=== PATIENT | female | born 1950 | race Caucasian/White ===

== ENCOUNTER 2017-01-15 09:42 | Observation (INO) ==
[2017-01-15] MEDS ORDERED: Ondansetron ODT 4 MG TAB.RAPDIS SL ONE (10:13)
--- NOTE | 2017-01-15 10:17 | Emergency Department Note ---
Disposition Clinical Impression: Fall Qualifiers: Encounter type: initial encounter Qualified Code(s): W19.XXXA - Unspecified fall, initial encounter Back pain Qualifiers: Back pain location: back pain in unspecified location Chronicity: acute Back pain laterality: bilateral Qualified Code(s): M54.9 - Dorsalgia, unspecified Vomiting Qualifiers: Vomiting type: unspecified Vomiting Intractability: non-intractable Nausea presence: with nausea Qualified Code(s): R11.2 - Nausea with vomiting, unspecified Closed L1 vertebral fracture Qualifiers: Encounter type: initial encounter Fracture morphology: unspecified fracture morphology Qualified Code(s): S32.019A - Unspecified fracture of first lumbar vertebra, initial encounter for closed fracture Disposition: Admitted As Inpatient Condition: Fair Instructions: Fall Prevention for Older Adults (ED), Acute Nausea and Vomiting (ED) Reasons to Return/Additional Instructions: Return with worsening symptoms or any other complaints. Please follow up with her primary care doctor within 24-48 hours. Forms: ED Satisfaction Letter Fall HPI - General Chief Complaint: ED Fall Stated Complaint: Fall-back Pain Source: patient, EMS Nursing Notes Reviewed: Yes Vital Signs Reviewed: Yes - History of Present Illness HPI Narrative: 66-year-old female presents to the emergency department with mechanical fall. Patient states that she was outside attempting to pot a plant that had been growing on the inside, when she tripped and fell backwards. Said she landed mostly on her lower back but also seems to have injured her upper back and hit her head. She denies loss of consciousness but said she felt dizzy for a little while and she did have several episodes of emesis. The vomiting has resolved. She does not have any headache. She has some mild neck tenderness. Most of her complaints at this time are related to her neck and back. She was able to ambulate but barely. She is very difficult time taking pain medications and says she is allergic to anything narcotic. Pt Subjective Complaint: fall Onset (ago): Just SLITTING [employer] Fall From: standing Fall Witnessed: no Place Fall Occurred: home Loss of Consciousness: none Prolonged Down Time?: no Symptoms Prior to Fall: none Context: tripped/slipped Location of injury: head, neck, back Severity: mild Quality: sharp Associated symptoms (after fall): Reports: denies - Related Data Home Medications Medication Instructions Recorded Confirmed Acetaminophen [Tylenol] 325 mg PO Q6HR 07/05/15 07/05/15 Cholecalciferol (Vitamin D3) 2,000 unit PO DAILY 07/05/15 07/05/15 [Vitamin D3] Cyanocobalamin (Vitamin B-12) 100 mcg PO DAILY 07/05/15 07/05/15 [Vitamin B-12] Denosumab [Prolia (For Outpatient 60 mg SQ [id number] 07/05/15 07/05/15 Infusion)] Diclofenac Sodium [Voltaren] 1 appl TP QID 07/05/15 07/05/15 FLUoxetine HCl [Prozac] 10 mg PO DAILY 07/05/15 07/05/15 Levothyroxine Sodium [Tirosint] 50 mcg PO AD 07/05/15 07/05/15 Pravastatin Sodium 10 mg PO QPM 07/05/15 07/05/15 Previous Rx's Medication Instructions Recorded Ondansetron ODT [Zofran ODT] 4 mg SL Q8HR PRN #20 tab.rapdis 07/06/15 Cyclobenzaprine [Flexeril] 10 mg PO BID #10 tablet 04/16/16 Allergies Allergy/AdvReac Type Severity Reaction Status Date / Time codeine Allergy Severe Anaphylaxis Verified 01/28/15 10:58 acetaminophen [From Percocet] AdvReac Nausea Verified 04/16/16 00:16 Opioids - Morphine Analogues AdvReac Headache Verified 07/06/15 12:03 Oxycodone [From Percocet] AdvReac Nausea Verified 04/16/16 00:16 Tetracyclines AdvReac Itching Verified 03/04/15 12:00 All systems ED: reviewed and negative except as stated. Constitutional: Reports: as per HPI Eyes: Reports: as per HPI ENT ED: Reports: as per HPI Cardiovascular: Reports: as per HPI Respiratory: Reports: as per HPI Gastrointestinal: Reports: as per HPI Fall PMH - Past Medical History Medical history: Reports: no medical history, arthritis, hyperlipidemia, osteoporosis, thyroid disease, other Surgical history: Reports: other Psychiatric history: Reports: no psych history - Social History Smoking Status: Never smoker Alcohol use: Reports: occasionally Drug use: Reports: none Physical Exam - General Limitations: no limitations General appearance: alert, in distress - Head Head exam: atraumatic - Eye Eye exam: Present: normal appearance - ENT ENT exam: normal exam - Neck Neck exam: Present: normal inspection, tenderness (Mild tenderness without step- offs.) - Chest Chest inspection: Present: normal inspection, tenderness (Post yearly patient has tenderness along the ribs and chest wall at the area of the back) - Respiratory Respiratory exam: Present: normal lung sounds bilaterally - Cardiovascular Cardiovascular exam: Present: regular rate, normal rhythm - Abdominal Exam Abdominal exam: Present: soft, Non-Tender - Expanded Lower Extremity Exam Hip/Pelvis exam: Present: normal inspection. Absent: tenderness, swelling - Back Exam Back exam: Present: normal inspection, tenderness (Patient has tenderness with palpation of the lower thoracic and entire lumbar spinous processes.) - Neurological Exam Neurological exam: Present: alert, oriented X3 - Psychiatric Psychiatric exam: Present: normal affect, normal mood - Skin Skin exam: Present: warm, dry, intact Course Vital Signs Temperature 98.2 F 01/15/17 09:43 Pulse Rate 98 01/15/17 09:43 Respiratory Rate 18 01/15/17 09:43 Blood Pressure 138/90 01/15/17 09:43 O2 Sat by Pulse Oximetry 99 01/15/17 09:43 Temperature 98.2 F 01/15/17 09:43 Pulse Rate 93 01/15/17 10:21 Respiratory Rate 18 01/15/17 10:21 Blood Pressure 140/94 01/15/17 10:21 O2 Sat by Pulse Oximetry 100 01/15/17 10:21 Oxygen Delivery Oxygen Delivery Room Air Fall - [facility] Narrative Medical decision making narrative: Patient is extremely frail appearing which prompted a relatively extensive radiographic evaluation for injury. She has tenderness to palpation but no obvious deformities on examination. CT scans of the head and neck were negative. Pelvic x-ray and chest x-ray also did not show acute abnormalities. However CT scans of the lumbar spine revealed compression fracture and endplate fracture of T12 and L1. I discussed the case with Dr. Choudhary who said that they can see her has an inpatient there is nothing surgically to do. I discussed the possibility of going home versus staying in the hospital with the patient. The patient who takes care of her is in a wheelchair said she really felt that she would rather stay in the hospital for the day skittle little bit of rest and recover from her acute back fracture. She was able to ambulate although with some discomfort while in the emergency department. We treated her pain with ibuprofen as she requested because the patient left take narcotic pain medication. We also treat her nausea successfully with Zofran. I discussed case with the hospitalist agree to accept the patient for the evening for further evaluation treatment. At her request we also ordered several lab testing so that they could effectively manage the patient while in the hospital. - Lab Data Lab results reviewed: Yes I reviewed the patient's lab results.
[2017-01-15] MEDS ORDERED: Ondansetron ODT 4 MG TAB.RAPDIS SL PRN (13:48)
[2017-01-15] MEDS ORDERED: Naloxone 0.4 MG/ML INJ IVP PRN (13:48)
[2017-01-15] MEDS ORDERED: dimenhyDRINATE 50 MG TABLET PO PRN (13:52)
--- NOTE | 2017-01-15 14:48 | Internal Med History&Physical ---
<Rachel Lua M - Last Filed: 01/15/17 14:44> Date of Encounter: 01/15/17 Time of Encounter: 14:44 Assessment and Plan (1) Closed L1 vertebral fracture Current visit: Yes Status: Acute Patient suffered mechanical fall today and reports low back pain. CT shows Compression fracture and endplate fracture of T12 and L1. Dr. Issa of spine surgery consulted. This is no-surgical injury, but he will see patient. Tyelonol and NSAIDs for pain. PT/OT consults. Qualifiers: Encounter type: initial encounter Fracture morphology: unspecified fracture morphology Qualified Code(s): S32.019A - Unspecified fracture of first lumbar vertebra, initial encounter for closed fracture (2) Hypothyroid Current visit: Yes Status: Acute continue home dose of Synthroid Qualifiers: Hypothyroidism type: unspecified Qualified Code(s): E03.9 - Hypothyroidism , unspecified (3) Fall Current visit: Yes Status: Acute Patient had a mechanical fall at home. She reports hitting her head with dizziness and vomiting afterwards, as well as low back pain. Dizziness and vomiting now resolved. CT head negative for acute abnormality. CT of lumbar spine showed compression fracture and endplate fracture of T12 and L1. Consult to PT/OT Consult to [facility] for discharge planning. Qualifiers: Encounter type: initial encounter Qualified Code(s): W19.XXXA - Unspecified fall, initial encounter (4) Back pain Current visit: Yes Status: Acute Patient with low back pain after fall. CT shows compression fracture of T12 and L1. Not surgical. Patient does not like to take narcotics. Will treat with tylenol and NSAIDs. PT and OT consults. Qualifiers: Back pain location: back pain in unspecified location Chronicity: acute Back pain laterality: bilateral Qualified Code(s): M54.9 - Dorsalgia, unspecified (5) DVT prophylaxis Current visit: Yes Status: Acute sequential compression devices. Internal Medicine - H&P: HPI Chief complaint: fall Admitted From: Emergency Dept Plans for Post Hospital Care: Home History of present illness: Ms. Beltran is a 66 year old female with arthritis, osteoporosis, hypothyroid presents to the emergency department today with complaints of fall and back pain. She reports she was working in her yard when she tripped and fell backwards landing on her low back and hitting her head, after the fall she was dizzy for sure. And vomited several times. Patient denies headache, current dizziness or vomiting, she denies any chest pain, palpitations, shortness of breath. She is reporting difficulty with walking due to the low back pain. Evaluation in the emergency department included CT of the head and cervical neck which showed no acute intracranial abnormalities and no acute fractures. CT of the lumbar spine did show compression fracture and and plate fracture of T12 and L1. Dr. Choudhary was consulted and sedimentation rate this is not surgically but he would be happy to see the patient. On exam, patient is alert and oriented, in no acute distress. Appears chronically frail. Her heart has regular rate and rhythm, lungs are clear bilaterally to auscultation. No peripheral edema. She does have tenderness to palpation of the spine or low back. Past Med Surg Social Fam HX - Past Medical History Medical history: arthritis, hyperlipidemia, osteoporosis, thyroid disease, other Psychiatric history: no psych history - Past Surgical History Surgical History: other - Social History Smoking Status: Never smoker Smokeless Tobacco Status: No Alcohol use: none Drug use: none - Family History Mother Living Status: Hx Family Cancer: Yes Father Living Status: Cause of : Cancer Hx Family Cancer: Yes Internal Medicine - H&P: Meds Acetaminophen [Tylenol] 650 mg PO Q6HR PRN 07/05/15 [History] Cholecalciferol (Vitamin D3) [Vitamin D3] 2,000 unit PO DAILY 07/05/15 [History] Cyanocobalamin (Vitamin B-12) [Vitamin B-12] 100 mcg PO DAILY 07/05/15 [History] Denosumab [Prolia (For Outpatient Infusion)] 60 mg SQ [id number] 07/05/15 [History ] Diclofenac Sodium [Voltaren] 1 appl TP QID 07/05/15 [History] FLUoxetine HCl [Prozac] 10 mg PO DAILY 07/05/15 [History] Levothyroxine Sodium [Tirosint] 50 mcg PO AD 07/05/15 [History] Pravastatin Sodium 10 mg PO QPM 07/05/15 [History] Ondansetron ODT [Zofran ODT] 4 mg SL Q8HR PRN #20 tab.rapdis 07/06/15 [Rx] Cyclobenzaprine [Flexeril] 10 mg PO BID #10 tablet 04/16/16 [Rx] Aspirin [Lo-Dose Aspirin EC] 81 mg PO DAILY 01/15/17 [History] Multivitamin [Multivitamins] 1 cap PO DAILY 01/15/17 [History] dimenhyDRINATE [Dramamine] 50 mg PO BID PRN 01/15/17 [History] 3 Allergy/AdvReac Type Severity Reaction Status Date / Time codeine Allergy Severe Anaphylaxis Verified 01/28/15 10:58 acetaminophen [From Percocet] AdvReac Nausea Verified 04/16/16 00:16 Opioids - Morphine Analogues AdvReac Headache Verified 07/06/15 12:03 Oxycodone [From Percocet] AdvReac Nausea Verified 04/16/16 00:16 Tetracyclines AdvReac Itching Verified 03/04/15 12:00 All Systems PM: A 10-system review of systems was performed and is negative for pertinent findings except as documented above in the HPI. - Constitutional Constitutional: falls, no chills, no fever(s), no night sweats - EENT Eyes: no change in vision, no discharge, no pain, no photophobia Ears: no ear discharge, no ear pain, no tinnitus Nose, mouth and throat: no dysphagia, no nasal discharge, no neck pain, no sore throat - Cardiovascular Cardiovascular ROS IM: no chest pain, no diaphoresis, no dyspnea, no lightheadedness, no palpitations, no syncope - Respiratory Respiratory: no cough, no dyspnea, no wheezing, no excessive phlegm production - Gastrointestinal Gastrointestinal: no abdominal pain, no diarrhea, no hematemesis, no hematochezia, no melena, no nausea, no vomiting - Genitourinary Genitourinary: no change in urinary stream, no dysuria, no flank pain, no hematuria - Musculoskeletal Musculoskeletal ROS IM: back pain, deformity (scoliosis and kyphosis), no numbness, no tingling - Integumentary Integumentary IM: no rash, no unusual bruising - Neurological Neurological ROS: no confusion, no convulsions, no focal weakness, no numbness, no tingling, no tremor(s) - Hematologic/Lymphatic Hematologic/Lymphatic: no easy bruising - Constitutional Vitals: Temp Pulse Resp BP Pulse Ox 98.7 F 95 16 147/81 98 01/15/17 13:23 01/15/17 13:23 01/15/17 13:23 01/15/17 13:23 01/15/17 13:51 General appearance: Present: A&O X 3, pleasant, no acute distress - Head Head exam: Present: atraumatic, normocephalic - Eye Eye exam: Present: PERRL, conjuntiva pink, sclera anicteric Pupils: Present: PERRL - Neck Neck exam general surgery: Present: supple, trachea midline. Absent: lymphadenopathy - Respiratory Respiratory exam: Present: CTAB. Absent: accessory muscle use, rales, rhonchi, wheezes - Cardiovascular Cardiovascular exam: Present: RRR, +S1, +S2. Absent: diastolic murmur, gallop, rubs, systolic murmur - GI/Abdominal GI/Abdominal exam: Present: normal bowel sounds, soft, no peritoneal signs. Absent: distended, tenderness - Extremities Exam Extremities exam: Present: warm, radial pulses palpable and symmetrical. Absent : calf tenderness, cyanotic, pedal edema - Back Exam Back exam: Present: paraspinal tenderness, vertebral tenderness Additional comments: scoliosis and kyphosis - Neurological Exam Neurological exam: Present: CN II-XII intact, oriented X3, no focal deficits. Absent: facial droop, speech deficit - Skin Skin exam: Present: dry, intact Internal Med - H&P Results - Diagnostic Studies Other Images Additional comments: Cervical Spine CT 01/15/17 10:11 IMPRESSION: 1. No acute calvarial abnormality or significant scalp contusion. 2. No acute intracranial abnormality. 3. Significant decreased bone mineral density with pronounced kyphosis. No acute fracture. 4. Diffuse degenerative changes resulting in canal and foraminal stenosis with probable degenerative 4 mm anterolisthesis of C4 with respect to 5 and C5 with respect 6. D/ / 01/15/2017 11:37:39 Darrion Weston MD / [email or web address] Interpreting Provider: Darrion Weston MD Head CT 01/15/17 10:11 IMPRESSION: 1. No acute calvarial abnormality or significant scalp contusion. 2. No acute intracranial abnormality. 3. Significant decreased bone mineral density with pronounced kyphosis. No acute fracture. 4. Diffuse degenerative changes resulting in canal and foraminal stenosis with probable degenerative 4 mm anterolisthesis of C4 with respect to 5 and C5 with respect 6. D/ / 01/15/2017 11:37:39 Darrion Weston MD / zakiya Interpreting Provider: Darrion Weston MD Lumbar Spine CT 01/15/17 10:11 IMPRESSION: Acute superior endplate fracture of L1 with mild height loss and minimal dorsal osseous retropulsion. D/ / Josh Castillo MD / Josh Castillo MD Interpreting Provider: Josh Castillo MD Thoracic Spine CT 01/15/17 10:11 IMPRESSION: Likely transitional vertebral anatomy with partially sacralized L5. If there is surgery planned, recommend counting from the cervical spine. Acute compression fracture at the superior endplate of T12 with minimal retroversion of posterior cortex without contributing to spinal canal stenosis. Chronic appearing mild compression deformities of T1 and T3. Diffuse osteopenia. S-shaped scoliosis of the thoracic spine. Multilevel degenerative disc disease. D/ / Dillon Rios MD / Dillon Rios MD Interpreting Provider: Dillon Rios MD Pelvis X-Ray 01/15/17 10:13 IMPRESSION: 1. Decreased bone mineral density with scoliosis. No acute thoracic traumatic abnormality. 2. 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 No acute fracture. D/ / 01/15/2017 11:02:43 Darrion Weston MD / [email or web address] Interpreting Provider: Darrion Weston MD Chest X-Ray 01/15/17 10:19 IMPRESSION: 1. Decreased bone mineral density with scoliosis. No acute thoracic traumatic abnormality. 2. 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 No acute fracture. D/ / 01/15/2017 11:02:43 Darrion Weston MD / [email or web address] Interpreting Provider: Darrion Weston MD <Cyndie Adams - Last Filed: 01/16/17 07:42> Date of Encounter: 01/15/17 Time of Encounter: 16:05 Internal Medicine - H&P: HPI History of present illness: Ms. Beltran is a 66 year old female All Systems PM: A 10-system review of systems was performed and is negative for pertinent findings except as documented above in the HPI. - Constitutional Vitals: Temp Pulse Resp BP Pulse Ox 98.8 F 96 16 97/64 94 01/16/17 06:26 01/16/17 06:26 01/16/17 06:26 01/16/17 06:26 01/16/17 06:26 Internal Med - H&P Results - Labs CBC & Chem 7: 01/16/17 04:34 01/16/17 04:34 Labs: Short CBC 01/15/17 01/16/17 Range/Units 14:16 04:34 WBC 11.2 H 7.0 (4.3-11.1) K/mcL Hgb 12.0 10.9 L (11.5-15.4) g/dL Hct 37.3 33.2 L (35.3-44.9) % Plt Count 226 165 (140-400) K/mcL Neutrophils # 9.7 H 5.3 (1.6-8.9) K/mcL BMP 01/15/17 01/16/17 14:16 04:34 Sodium 139 143 Potassium 4.4 4.2 Chloride 103 109 Carbon Dioxide 24 25 BUN 19 19 Creatinine 1.04 0.88 Glucose 143 H 97 Calcium 9.8 9.6 Urine 01/15/17 Range/Units 17:45 Urine Color Yellow (Yellow) Urine Clarity Clear (Clear) Urine pH 7.0 (5.0-8.0) pH Units Ur Specific [place] 1.008 L (1.010-1.025) Urine Protein Negative (Neg-Trace) mg/dL Urine Glucose (UA) Normal (Normal) mg/dL - Attending Attestation Pt independently seen and examined. Admitted for compression fracture s/p fall. Case discussed with ORACIO Lua, I agree with her documented findings, assessment, and plan.
[2017-01-15 15:15] LABS: Basophils % 0.2 %; Eosinophils % 0.1 %; Hematocrit 37.3 % (35.3-44.9); Immature Granulocytes % 0.6 % (0-4); Immature Platelets 3.2 % (1.1-6.1); Lymphocytes # 0.8 K/mcL (0.6-4.6); Lymphocytes % 7.3 %; Mean Corpuscular HGB Conc 32.2 g/dL (31.6-35.5); Mean Corpuscular Hemoglobin 29.6 pg (28.0-33.3); Mean Corpuscular Volume 92.1 fL (83.0-100.0); Mean Platelet Volume 10.6 fL (9.4-12.4); Monocytes # 0.6 K/mcL (0.0-1.3); Monocytes % 5.5 %; Neutrophils # 9.7 K/mcL (1.6-8.9); Platelet Count 226 K/mcL (140-400); Red Blood Count 4.05 M/mcL (3.82-4.97); Red Cell Distribution Width 13.4 % (11.5-14.5); Segmented Neutrophils % 86.3 %
[2017-01-15 15:26] LABS: Magnesium 1.9 mg/dL (1.6-2.6); Phosphorous 2.9 mg/dL (2.3-4.7)
[2017-01-15 15:27] LABS: BUN/Creatinine Ratio 18 (6-26); Blood Urea Nitrogen 19 mg/dL (7-20); Calcium 9.8 mg/dL (8.6-10.8); Carbon Dioxide 24 mEq/L (19-29); Chloride 103 mEq/L (98-109); Glucose 143 mg/dL (70-99); Osmolality,Calculated 293 (280-300); Potassium 4.4 mEq/L (3.5-4.5); Sodium 139 mEq/L (136-145); eGFR For African Americans > 60 (> 60); eGFR For Non-African Americans 53 (> 60)
[2017-01-15] MEDS: Acetaminophen 325 MG TABLET PO PRN (15:42)
[2017-01-15] MEDS: Ketorolac 15 MG/ML VIAL IVP PRN ×2 (17:49→23:43)
[2017-01-15 18:04] LABS: Bilirubin,Urine Negative (Negative); Blood,Urine Small (Negative); Clarity,Urine Clear (Clear); Color,Urine Yellow (Yellow); Glucose,Urine (UA) Normal (Normal); Ketones,Urine Negative (Negative); Leukocyte Esterase,Urine Negative (Negative); Nitrite,Urine Negative (Negative); Protein,Urine Negative (Neg-Trace); Specific Gravity,Urine 1.008 (1.010-1.025); Urobilinogen,Urine Normal (Normal)
[2017-01-15 18:12] LABS: RBC,Urine 0-3 per hpf (0-3); Squamous Epithelial Cell,Urine Few per lpf (None-Few); WBC,Urine 0-3 per hpf (0-3)
[2017-01-15 18:13] LABS: Bacteria,Urine Few per hpf (None-Few)
[2017-01-16 04:53] LABS: Basophils % 0.3 %; Eosinophils # 0.1 K/mcL (0.0-0.6); Eosinophils % 0.7 %; Hematocrit 33.2 % (35.3-44.9); Hemoglobin 10.9 g/dL (11.5-15.4); Immature Granulocytes % 0.3 % (0-4); Lymphocytes % 13.9 %; Mean Corpuscular HGB Conc 32.8 g/dL (31.6-35.5); Mean Corpuscular Hemoglobin 30.1 pg (28.0-33.3); Mean Corpuscular Volume 91.7 fL (83.0-100.0); Mean Platelet Volume 10.2 fL (9.4-12.4); Monocytes # 0.6 K/mcL (0.0-1.3); Monocytes % 8.9 %; Neutrophils # 5.3 K/mcL (1.6-8.9); Platelet Count 165 K/mcL (140-400); Red Blood Count 3.62 M/mcL (3.82-4.97); Red Cell Distribution Width 13.6 % (11.5-14.5); Segmented Neutrophils % 75.9 %
[2017-01-16 05:04] LABS: BUN/Creatinine Ratio 22 (6-26); Blood Urea Nitrogen 19 mg/dL (7-20); Calcium 9.6 mg/dL (8.6-10.8); Carbon Dioxide 25 mEq/L (19-29); Chloride 109 mEq/L (98-109); Glucose 97 mg/dL (70-99); Osmolality,Calculated 298 (280-300); Potassium 4.2 mEq/L (3.5-4.5); Sodium 143 mEq/L (136-145); eGFR For African Americans > 60 (> 60); eGFR For Non-African Americans > 60 (> 60)
[2017-01-16] MEDS: Ketorolac 15 MG/ML VIAL IVP PRN ×2 (05:44→13:04)
[2017-01-16] MEDS ORDERED: Cyanocobalamin (B-12) 1,000 MCG TABLET PO SCH (09:00)
[2017-01-16] MEDS ORDERED: Aspirin Enteric Coated 81 MG Tablet PO SCH (09:00)
[2017-01-16] MEDS ORDERED: Multivit/Ca/Min/Fe/FA 1 TAB TABLET PO SCH (09:00)
[2017-01-16] MEDS ORDERED: Cholecalciferol (D-3) 1,000 UNIT TABLET PO SCH (09:00)
[2017-01-16] MEDS ORDERED: FLUoxetine HCl 10 MG CAPSULE PO SCH (09:00)
[2017-01-16] MEDS: Acetaminophen 325 MG TABLET PO PRN (10:26)
--- NOTE | 2017-01-16 11:50 | Discharge Summary ---
Date of Encounter: 01/16/17 Time of Encounter: 09:20 - Discharge Diagnosis (1) Closed L1 vertebral fracture Priority: Primary Status: Acute Qualifiers: Encounter type: initial encounter Fracture morphology: other fracture Qualified Code(s): S32.018A - Other fracture of first lumbar vertebra, initial encounter for closed fracture (2) Back pain Priority: Secondary Status: Acute Qualifiers: Back pain location: low back pain Chronicity: acute Back pain laterality : bilateral Sciatica presence: without sciatica Qualified Code(s): M54.5 - Low back pain (3) DVT prophylaxis Priority: Secondary Status: Acute (4) Fall Priority: Secondary Status: Acute Qualifiers: Encounter type: initial encounter Qualified Code(s): W19.XXXA - Unspecified fall, initial encounter (5) Hypothyroid Priority: Secondary Status: Acute Qualifiers: Hypothyroidism type: unspecified Qualified Code(s): E03.9 - Hypothyroidism , unspecified - Discharge Medications Prescriptions: Ibuprofen [Motrin] 800 mg PO Q8HR #30 tablet Famotidine [Pepcid] 20 mg PO BID #30 tablet Home Medications: Acetaminophen [Tylenol] 650 mg PO Q6HR PRN 07/05/15 [History] Cholecalciferol (Vitamin D3) [Vitamin D3] 2,000 unit PO DAILY 07/05/15 [History] Cyanocobalamin (Vitamin B-12) [Vitamin B-12] 100 mcg PO DAILY 07/05/15 [History] Denosumab [Prolia (For Outpatient Infusion)] 60 mg SQ [id number] 07/05/15 [History ] Diclofenac Sodium [Voltaren] 1 appl TP QID 07/05/15 [History] FLUoxetine HCl [Prozac] 10 mg PO DAILY 07/05/15 [History] Levothyroxine Sodium [Tirosint] 50 mcg PO AD 07/05/15 [History] Pravastatin Sodium 10 mg PO QPM 07/05/15 [History] Ondansetron ODT [Zofran ODT] 4 mg SL Q8HR PRN #20 tab.rapdis 07/06/15 [Rx] Cyclobenzaprine [Flexeril] 10 mg PO BID #10 tablet 04/16/16 [Rx] Aspirin [Lo-Dose Aspirin EC] 81 mg PO DAILY 01/15/17 [History] Multivitamin [Multivitamins] 1 cap PO DAILY 01/15/17 [History] dimenhyDRINATE [Dramamine] 50 mg PO BID PRN 01/15/17 [History] Famotidine [Pepcid] 20 mg PO BID #30 tablet 01/16/17 [Rx] Ibuprofen [Motrin] 800 mg PO Q8HR #30 tablet 01/16/17 [Rx] Allergies/Adverse Reactions: 3 Allergy/AdvReac Type Severity Reaction Status Date / Time codeine Allergy Severe Anaphylaxis Verified 01/28/15 10:58 acetaminophen [From Percocet] AdvReac Nausea Verified 04/16/16 00:16 Opioids - Morphine Analogues AdvReac Headache Verified 07/06/15 12:03 Oxycodone [From Percocet] AdvReac Nausea Verified 04/16/16 00:16 Tetracyclines AdvReac Itching Verified 03/04/15 12:00 Date of admission: 01/15/17 12:23 Primary care physician: Shemar Mazariegos MD Consults: 01/15/17 13:50 Consult to Tufting Supervisor [CONS] Routine Reason for SW Consult: Patient cares for disable at home and now has spinal compression fracture, will need additional assistance, discharge planning. Consult to Tufting Supervisor [CONS] Routine Reason for SW Consult: d/c planning 01/15/17 13:51 Consult to Occupational Therapy [CONS] Routine Comment: Evaluate, develop and implement POC Reason for Consult: compression fracture Consult to Physical Therapy [CONS] Routine Comment: Evaluate, develop and implement POC Reason for Consult: compression fracture Discharging clinician: Eliu Garvin Anticipated date of discharge: 01/16/17 - Patient Status Disposition: Home Health Service Condition: Fair Functional capacity at discharge: uses cane/walker Overall status at discharge: patient is progressing back to baseline - Discharge Instructions Instructions: Famotidine (By mouth), Ibuprofen (By mouth), Vertebral Compression Fracture (DC) Follow Up With: Mohan Choudhary Jr, MD [Partnered Physician] - 01/26/17 8:30 am (in 1-2 weeks) Shemar Mazariegos MD [Primary Care Provider] - 01/25/17 2:15 pm (in 1-2 weeks) - Diet and Activity Activity: as per physical therapy, increase activity as tolerated Diet: low fat, low cholesterol, low salt diet Hospital course: Ms. Beltran is a 66 year old female patient with history of arthritis, osteoporosis and hypothyroidism was hospitalized if here after a fall backwards which resulted in compression fracture endplate fracture of T12 and L1. CT of the head showed no acute bleed. Patient was evaluated by spine surgeon and recommended outpatient follow-up. Patient was evaluated by physical therapy and recommended home health. Her pain is better controlled today. She will be discharged home today with home health and physical therapy. - Time Spent with Patient Total time spent providing and/or coordinating discharge services: Less than 30 minutes (25 min) - Constitutional Vitals: Temp Pulse Resp BP Pulse Ox 97.7 F 80 16 159/83 99 01/16/17 11:18 01/16/17 11:18 01/16/17 11:18 01/16/17 11:18 01/16/17 11:18 General appearance: Present: A&O X 3, pleasant, no acute distress - Neck Neck exam general surgery: Present: supple, trachea midline. Absent: lymphadenopathy - Respiratory Respiratory exam: Present: CTAB. Absent: accessory muscle use, rales, rhonchi, wheezes - Cardiovascular Cardiovascular exam: Present: RRR, +S1, +S2. Absent: diastolic murmur, gallop, rubs, systolic murmur - Extremities Exam Extremities exam: Present: warm, radial pulses palpable and symmetrical. Absent : calf tenderness, cyanotic, pedal edema - VTE Documentation of Mechanical Device: Intermittent pneumatic compression device
--- NOTE | 2017-01-16 11:56 | Physician Discharge Referral ---
Home Health/Hosp Referral Info Transfer to: Home Health Provider in Charge Post Discharge: PCP - Diagnosis (1) Closed L1 vertebral fracture Priority: Primary Status: Acute (2) Back pain Priority: Secondary Status: Acute (3) DVT prophylaxis Priority: Secondary Status: Acute (4) Fall Priority: Secondary Status: Acute (5) Hypothyroid Priority: Secondary Status: Acute - Respiratory Orders Smoking Cessation: Smoking cessation has been advised. For more information, call the [place] Tobacco Quit Line at 9-395-NGHX-NOW. - Diet/Nutrition Diet/Nutrition Orders: Cardiac - Activity Activity Orders: Walker - Services Needed Following services are medically necessary services: Nursing, Home Health Aide, Physical Therapy, Occupational Therapy - Transfer Medications Prescriptions: Ibuprofen [Motrin] 800 mg PO Q8HR #30 tablet Famotidine [Pepcid] 20 mg PO BID #30 tablet Home Medications: Acetaminophen [Tylenol] 650 mg PO Q6HR PRN 07/05/15 [History] Cholecalciferol (Vitamin D3) [Vitamin D3] 2,000 unit PO DAILY 07/05/15 [History] Cyanocobalamin (Vitamin B-12) [Vitamin B-12] 100 mcg PO DAILY 07/05/15 [History] Denosumab [Prolia (For Outpatient Infusion)] 60 mg SQ [id number] 07/05/15 [History ] Diclofenac Sodium [Voltaren] 1 appl TP QID 07/05/15 [History] FLUoxetine HCl [Prozac] 10 mg PO DAILY 07/05/15 [History] Levothyroxine Sodium [Tirosint] 50 mcg PO AD 07/05/15 [History] Pravastatin Sodium 10 mg PO QPM 07/05/15 [History] Ondansetron ODT [Zofran ODT] 4 mg SL Q8HR PRN #20 tab.rapdis 07/06/15 [Rx] Cyclobenzaprine [Flexeril] 10 mg PO BID #10 tablet 04/16/16 [Rx] Aspirin [Lo-Dose Aspirin EC] 81 mg PO DAILY 01/15/17 [History] Multivitamin [Multivitamins] 1 cap PO DAILY 01/15/17 [History] dimenhyDRINATE [Dramamine] 50 mg PO BID PRN 01/15/17 [History] Famotidine [Pepcid] 20 mg PO BID #30 tablet 01/16/17 [Rx] Ibuprofen [Motrin] 800 mg PO Q8HR #30 tablet 01/16/17 [Rx] Allergies/Adverse Reactions: 3 Allergy/AdvReac Type Severity Reaction Status Date / Time codeine Allergy Severe Anaphylaxis Verified 01/28/15 10:58 acetaminophen [From Percocet] AdvReac Nausea Verified 04/16/16 00:16 Opioids - Morphine Analogues AdvReac Headache Verified 07/06/15 12:03 Oxycodone [From Percocet] AdvReac Nausea Verified 04/16/16 00:16 Tetracyclines AdvReac Itching Verified 03/04/15 12:00 Certification: Further, I certify that my clinical findings support that this patient is homebound (i.e. absences from home require considerable and taxing effort and are for medical reasons or latter day services or infrequently or short duration when for other reasons) because: Homebound Reason: Patient requires assistance of a person or device to safely leave home Attestation: My signature below is to certify that this patient is under my care and that I, or nurse practitioner, or a physician's assistant golf course superintendent working with me, has a face-to -face encounter with this patient.
--- NOTE | 2017-01-16 17:32 | Pain Management Consultation ---
Date of Encounter: 01/16/17 Time of Encounter: 17:30 Assessment and Plan (1) Compression fracture Status: Acute The assessment and plan as outlined above was discussed with the patient and/or family members who expressed understanding and agreement. All questions were answered. History of Present Illness Chief complaint: back pain HPI: This patient was discharged before being seen. Past Med Surg Social Fam HX - Past Medical History Medical history: arthritis, hyperlipidemia, osteoporosis, thyroid disease, other Psychiatric history: no psych history - Past Surgical History Surgical History: other - Social History Smoking Status: Never smoker Smokeless Tobacco Status: No Alcohol use: none Drug use: none - Family History Mother Living Status: Hx Family Cancer: Yes Father Living Status: Cause of : Cancer Hx Family Cancer: Yes Medications and Allergies Acetaminophen [Tylenol] 650 mg PO Q6HR PRN 07/05/15 [History] Cholecalciferol (Vitamin D3) [Vitamin D3] 2,000 unit PO DAILY 07/05/15 [History] Cyanocobalamin (Vitamin B-12) [Vitamin B-12] 100 mcg PO DAILY 07/05/15 [History] Denosumab [Prolia (For Outpatient Infusion)] 60 mg SQ [id number] 07/05/15 [History ] Diclofenac Sodium [Voltaren] 1 appl TP QID 07/05/15 [History] FLUoxetine HCl [Prozac] 10 mg PO DAILY 07/05/15 [History] Levothyroxine Sodium [Tirosint] 50 mcg PO AD 07/05/15 [History] Pravastatin Sodium 10 mg PO QPM 07/05/15 [History] Ondansetron ODT [Zofran ODT] 4 mg SL Q8HR PRN #20 tab.rapdis 07/06/15 [Rx] Cyclobenzaprine [Flexeril] 10 mg PO BID #10 tablet 04/16/16 [Rx] Aspirin [Lo-Dose Aspirin EC] 81 mg PO DAILY 01/15/17 [History] Multivitamin [Multivitamins] 1 cap PO DAILY 01/15/17 [History] dimenhyDRINATE [Dramamine] 50 mg PO BID PRN 01/15/17 [History] Famotidine [Pepcid] 20 mg PO BID #30 tablet 01/16/17 [Rx] Ibuprofen [Motrin] 800 mg PO Q8HR #30 tablet 01/16/17 [Rx] 3 Allergy/AdvReac Type Severity Reaction Status Date / Time codeine Allergy Severe Anaphylaxis Verified 01/28/15 10:58 acetaminophen [From Percocet] AdvReac Nausea Verified 04/16/16 00:16 Opioids - Morphine Analogues AdvReac Headache Verified 07/06/15 12:03 Oxycodone [From Percocet] AdvReac Nausea Verified 04/16/16 00:16 Tetracyclines AdvReac Itching Verified 03/04/15 12:00 Physical Exam Initial Vital Signs Temp Pulse Resp BP Pulse Ox 98.2 F 98 18 138/90 99 01/15/17 09:43 01/15/17 09:43 01/15/17 09:43 01/15/17 09:43 01/15/17 09:43 Results - Labs 01/16/17 04:34 01/16/17 04:34 Abnormal lab results RBC 3.62 M/mcL (3.82-4.97) L 01/16/17 04:34 Hgb 10.9 g/dL (11.5-15.4) L 01/16/17 04:34 Hct 33.2 % (35.3-44.9) L 01/16/17 04:34 Ur Specific [place] 1.008 (1.010-1.025) L 01/15/17 17:45 Urine Blood Small (Negative) H 01/15/17 17:45 Diabetes panel 01/16/17 Range/Units 04:34 Sodium 143 (136-145) mEq/L Potassium 4.2 (3.5-4.5) mEq/L Chloride 109 (98-109) mEq/L Carbon Dioxide 25 (19-29) mEq/L BUN 19 (7-20) mg/dL Creatinine 0.88 (0.57-1.11) mg/dL Glucose 97 (70-99) mg/dL Calcium 9.6 (8.6-10.8) mg/dL Calcium panel 01/16/17 Range/Units 04:34 Calcium 9.6 (8.6-10.8) mg/dL Pituitary panel 01/16/17 Range/Units 04:34 Sodium 143 (136-145) mEq/L Potassium 4.2 (3.5-4.5) mEq/L Chloride 109 (98-109) mEq/L Carbon Dioxide 25 (19-29) mEq/L BUN 19 (7-20) mg/dL Creatinine 0.88 (0.57-1.11) mg/dL Glucose 97 (70-99) mg/dL Calcium 9.6 (8.6-10.8) mg/dL Adrenal panel 01/16/17 Range/Units 04:34 Sodium 143 (136-145) mEq/L Potassium 4.2 (3.5-4.5) mEq/L Chloride 109 (98-109) mEq/L Carbon Dioxide 25 (19-29) mEq/L BUN 19 (7-20) mg/dL Creatinine 0.88 (0.57-1.11) mg/dL Glucose 97 (70-99) mg/dL Calcium 9.6 (8.6-10.8) mg/dL All other labs normal. - VTE Documentation of Mechanical Device: Intermittent pneumatic compression device Consult Discharge Plan - Plan Instructions: Famotidine (By mouth), Ibuprofen (By mouth), Vertebral Compression Fracture (DC) Referrals: Mohan Choudhary Jr, MD [Partnered Physician] - 01/26/17 8:30 am (in 1-2 weeks) Shemar Mazariegos MD [Primary Care Provider] - 01/25/17 2:15 pm (in 1-2 weeks) Prescriptions: Famotidine [Pepcid] 20 mg PO BID #30 tablet Ibuprofen [Motrin] 800 mg PO Q8HR #30 tablet
[2017-01-24 06:55] VITALS: BP 127/77
== END 2017-01-16 16:37 | disposition home health service (06) ==
LOC: 3NENU 09:42 → EMEROO 09:42 → 3NENU 13:10
PROVIDERS: ADMIT Internal Medicine; ATTEND Internal Medicine

== ENCOUNTER 2020-10-14 13:22 | Observation (INO) ==
[2020-10-14] MEDS ORDERED: 0.9 % Sodium Chloride 1,000 ML IVC ONE (13:35)
[2020-10-14] MEDS ORDERED: Ondansetron 4 MG/2 ML VIAL IVP ONE (13:35)
[2020-10-14] MEDS ORDERED: Isovue-370 500 ML BOTTLE IVP ONE (14:08)
[2020-10-14] MEDS ORDERED: *HR* Promethazine 25 MG/ML VIAL IM ONE (14:41)
[2020-10-14] MEDS ORDERED: Prochlorperazine 10 MG/2 ML VIAL IVP ONE (14:43)
[2020-10-14 15:02] LABS: Basophils # 0.1 K/mcL (0.0-0.2); Basophils % 0.3 %; Eosinophils # 0.1 K/mcL (0.0-0.6); Eosinophils % 0.5 %; Hematocrit 33.7 % (35.3-44.9); Hemoglobin 10.9 g/dL (11.5-15.4); Immature Granulocytes % 0.5 % (0-4); Lymphocytes # 4.3 K/mcL (0.6-4.6); Lymphocytes % 25.8 %; Mean Corpuscular HGB Conc 32.3 g/dL (31.6-35.5); Mean Corpuscular Hemoglobin 30.7 pg (28.0-33.3); Mean Corpuscular Volume 94.9 fL (83.0-100.0); Mean Platelet Volume 10.5 fL (9.4-12.4); Monocytes # 1.3 K/mcL (0.0-1.3); Monocytes % 7.5 %; Neutrophils # 10.9 K/mcL (1.6-8.9); Platelet Count 251 K/mcL (140-400); Red Blood Count 3.55 M/mcL (3.82-4.97); Red Cell Distribution Width 13.3 % (11.5-14.5); Segmented Neutrophils % 65.4 %; White Blood Count 16.7 K/mcL (4.3-11.1)
[2020-10-14 15:03] LABS: Platelet Estimate Normal (Normal); Reactive Lymphocytes Present (Not Present)
[2020-10-14 15:16] LABS: Troponin I < 0.03 ng/mL (< 0.04)
[2020-10-14 15:17] LABS: Bilirubin,Urine Negative (Negative); Blood,Urine Negative (Negative); Clarity,Urine Clear (Clear); Color,Urine Yellow (Yellow); Glucose,Urine (UA) Normal (Normal); Ketones,Urine 40 mg/dL (Negative); Leukocyte Esterase,Urine Negative (Negative); Mucus,Urine Few per lpf (None-Few); Nitrite,Urine Negative (Negative); PH,Urine 7.5 pH Units (5.0-8.0); Protein,Urine 30 mg/dL (Neg-Trace); RBC,Urine 0-3 per hpf (0-3); Specific Gravity,Urine 1.022 (1.010-1.025); Urobilinogen,Urine Normal (Normal); WBC,Urine 0-3 per hpf (0-3)
[2020-10-14] MEDS ORDERED: Piperacillin/Tazobactam 3.375 GM in 0.9 % Sodium Chloride Mini Bag 100 ML IVPB ONE (15:52)
[2020-10-14 16:01] LABS: Alanine Aminotransferase 11 Units/L (7-52); Albumin 4.5 g/dL (3.5-5.7); Albumin/Globulin Ratio 1.4 (1.1-2.2); Alkaline Phosphatase 64 Units/L (34-104); Aspartate Amino Transferase 26 Units/L (13-39); BUN/Creatinine Ratio 29 (6-26); Bilirubin,Total 0.5 mg/dL (0.3-1.0); Blood Urea Nitrogen 24 mg/dL (8-23); Calcium 10.4 mg/dL (8.6-10.3); Carbon Dioxide 22 mEq/L (23-29); Chloride 103 mEq/L (98-107); Globulin 3.3 g/dL (2.4-3.5); Glucose 114 mg/dL (70-105); Lipase 30 Units/L (11-82); Osmolality,Calculated 299 (280-300); Potassium 3.4 mEq/L (3.5-5.1); Sodium 142 mEq/L (136-145); Thyroid Stimulating Hormone 0.243 mcIU/mL (0.340-5.600); Total Protein 7.8 g/dL (6.4-8.9); eGFR For African Americans > 60 (> 60); eGFR For Non-African Americans > 60 (> 60)
[2020-10-14] MEDS ORDERED: Melatonin 3 MG TABLET PO PRN (21:54)
[2020-10-14] MEDS ORDERED: Naloxone 0.4 MG/ML INJ IVP PRN (21:54)
[2020-10-14] MEDS ORDERED: *HR* Promethazine 25 MG/ML VIAL IM PRN (21:54)
[2020-10-14] MEDS ORDERED: Acetaminophen 325 MG TABLET PO PRN (21:54)
[2020-10-14] MEDS ORDERED: Ondansetron 4 MG/2 ML VIAL IVP PRN (21:54)
[2020-10-14] MEDS: 0.9 % Sodium Chloride w KCl 20 MEQ/1,000 ML MLS IVC SCH (22:55)
[2020-10-14] MEDS ORDERED: Metoclopramide 10 MG/2 ML VIAL IVP PRN (22:59)
[2020-10-15 03:50] LABS: Basophils % 0.1 %; Eosinophils % 0.1 %; Hematocrit 28.2 % (35.3-44.9); Hemoglobin 9.1 g/dL (11.5-15.4); Immature Granulocytes % 0.4 % (0-4); Lymphocytes # 1.3 K/mcL (0.6-4.6); Lymphocytes % 18.2 %; Mean Corpuscular HGB Conc 32.3 g/dL (31.6-35.5); Mean Corpuscular Hemoglobin 30.6 pg (28.0-33.3); Mean Corpuscular Volume 94.9 fL (83.0-100.0); Mean Platelet Volume 10.7 fL (9.4-12.4); Monocytes # 0.6 K/mcL (0.0-1.3); Monocytes % 7.9 %; Neutrophils # 5.1 K/mcL (1.6-8.9); Platelet Count 177 K/mcL (140-400); Red Blood Count 2.97 M/mcL (3.82-4.97); Red Cell Distribution Width 13.9 % (11.5-14.5); Segmented Neutrophils % 73.3 %
[2020-10-15 04:01] LABS: BUN/Creatinine Ratio 18 (6-26); Blood Urea Nitrogen 14 mg/dL (8-23); Carbon Dioxide 21 mEq/L (23-29); Chloride 112 mEq/L (98-107); Glucose 85 mg/dL (70-105); INR 1.1; Magnesium 1.8 mg/dL (1.6-2.6); Osmolality,Calculated 294 (280-300); Potassium 4.1 mEq/L (3.5-5.1); Prothrombin Time 12.9 Seconds (9.4-12.1); Sodium 142 mEq/L (136-145); eGFR For African Americans > 60 (> 60); eGFR For Non-African Americans > 60 (> 60)
[2020-10-15] MEDS: 0.9 % Sodium Chloride w KCl 20 MEQ/1,000 ML MLS IVC SCH (05:52)
[2020-10-15] MEDS ORDERED: Azithromycin 500 MG in 0.9 % Sodium Chloride 250 ML IVPB SCH (08:00)
[2020-10-15] MEDS ORDERED: Ringers Solution, Lactated 1,000 ML IVC SCH (08:15)
[2020-10-15] MEDS ORDERED: cefTRIAXone 1,000 MG in Water for inj. (sterile) 10 ML IVP SCH (09:00)
[2020-10-15 09:50] LABS: Influenza A PCR Negative (Negative); Influenza B PCR Negative (Negative); Resp. Syncytial Virus PCR Negative (Negative)
[2020-10-15 10:22] VITALS: BP 122/80
[2020-10-15 10:33] LABS: SARS-CoV-2 by PCR (In House) Negative (Negative)
== END 2020-10-15 14:09 | disposition home or self-care (01) ==
LOC: EMEROOARM 13:22 → 2ANU 13:22 → SUATTDRO 20:56 → 2ANU 21:52
PROVIDERS: ADMIT Internal Medicine; ATTEND Internal Medicine

== ENCOUNTER 2021-01-04 11:56 | Inpatient (IN) ==
[2021-01-04] MEDS ORDERED: 0.9 % Sodium Chloride 1,000 ML IVC ONE (12:17)
[2021-01-04 13:58] LABS: Basophils % 0.2 %; Eosinophils % 0.1 %; Hematocrit 35.6 % (35.3-44.9); Hemoglobin 12.2 g/dL (11.5-15.4); Immature Granulocytes % 0.6 % (0-4); Lymphocytes # 1.4 K/mcL (0.6-4.6); Lymphocytes % 11.1 %; Mean Corpuscular HGB Conc 34.3 g/dL (31.6-35.5); Mean Corpuscular Hemoglobin 29.5 pg (28.0-33.3); Mean Platelet Volume 10.2 fL (9.4-12.4); Monocytes # 0.6 K/mcL (0.0-1.3); Neutrophils # 10.1 K/mcL (1.6-8.9); Platelet Count 264 K/mcL (140-400); Red Blood Count 4.14 M/mcL (3.82-4.97); Red Cell Distribution Width 13.7 % (11.5-14.5); White Blood Count 12.2 K/mcL (4.3-11.1)
[2021-01-04 14:04] LABS: Prothrombin Time 11.4 Seconds (9.4-12.1)
[2021-01-04 14:22] LABS: BUN/Creatinine Ratio 24 (6-26); Blood Urea Nitrogen 18 mg/dL (8-23); Carbon Dioxide 23 mEq/L (23-29); Chloride 101 mEq/L (98-107); Glucose 204 mg/dL (70-105); Osmolality,Calculated 288 (280-300); Potassium 3.6 mEq/L (3.5-5.1); Sodium 135 mEq/L (136-145); eGFR For African Americans > 60 (> 60); eGFR For Non-African Americans > 60 (> 60)
[2021-01-04] MEDS ORDERED: Morphine Sulfate 2 MG/ML SYRINGE IVP ONE ×2 (14:38→17:11)
[2021-01-04] MEDS ORDERED: Ondansetron 4 MG/2 ML VIAL IVP ONE (14:45)
[2021-01-04 15:13] LABS: Bilirubin,Urine Negative (Negative); Blood,Urine Trace (Negative); Clarity,Urine Clear (Clear); Color,Urine Colorless (Yellow); Glucose,Urine (UA) 150 mg/dL (Normal); Ketones,Urine 10 mg/dL (Negative); Leukocyte Esterase,Urine Negative (Negative); Nitrite,Urine Negative (Negative); Protein,Urine Negative (Neg-Trace); Specific Gravity,Urine 1.007 (1.010-1.025); Squamous Epithelial Cell,Urine Few per hpf (None-Few); Urobilinogen,Urine Normal (Normal); WBC,Urine 0-3 per hpf (0-3)
[2021-01-04] MEDS ORDERED: Naloxone 0.4 MG/ML INJ IVP PRN (15:36)
[2021-01-04] MEDS ORDERED: Melatonin 3 MG TABLET PO PRN (15:36)
[2021-01-04] MEDS ORDERED: Ondansetron 4 MG/2 ML VIAL IVP PRN (15:36)
[2021-01-04] MEDS ORDERED: Ketorolac 30 MG/ML VIAL IVP PRN (15:40)
[2021-01-04] MEDS ORDERED: D5% in Water 1,000 ML IVC PRN (19:25)
[2021-01-04] MEDS ORDERED: Dextrose Gel 15 GM/37.5 ML TUBE PO PRN ×2 (19:25)
[2021-01-04] MEDS ORDERED: *HR* Dextrose 50 % in Water (Vial) 50 ML VIAL IVP PRN (19:25)
[2021-01-04 20:10] LABS: Estimated Average Glucose 111 mg/dl; Hemoglobin A1C 5.5 %
[2021-01-05 01:33] LABS: Hematocrit 29.9 % (35.3-44.9); Mean Corpuscular HGB Conc 32.4 g/dL (31.6-35.5); Mean Corpuscular Hemoglobin 28.7 pg (28.0-33.3); Mean Corpuscular Volume 88.5 fL (83.0-100.0); Mean Platelet Volume 10.3 fL (9.4-12.4); Platelet Count 207 K/mcL (140-400); Red Blood Count 3.38 M/mcL (3.82-4.97); Red Cell Distribution Width 14.1 % (11.5-14.5); White Blood Count 7.4 K/mcL (4.3-11.1)
[2021-01-05 01:36] LABS: Hemoglobin 9.7 g/dL (11.5-15.4)
[2021-01-05 01:54] LABS: BUN/Creatinine Ratio 19 (6-26); Blood Urea Nitrogen 11 mg/dL (8-23); Calcium 8.1 mg/dL (8.6-10.3); Carbon Dioxide 25 mEq/L (23-29); Chloride 105 mEq/L (98-107); Glucose 115 mg/dL (70-105); Magnesium 1.8 mg/dL (1.6-2.6); Osmolality,Calculated 284 (280-300); Phosphorous 3.1 mg/dL (2.7-4.5); Sodium 137 mEq/L (136-145); eGFR For African Americans > 60 (> 60); eGFR For Non-African Americans > 60 (> 60)
[2021-01-05] MEDS: Morphine Sulfate 2 MG/ML SYRINGE IVP PRN ×2 (04:53→20:01)
[2021-01-05] MEDS: Insulin LISPRO 300 UNITS/3 ML VIAL SUBQ SCH ×3 (07:37→15:32)
[2021-01-05 08:16] LABS: Hematocrit 30.4 % (35.3-44.9); Hemoglobin 10.1 g/dL (11.5-15.4)
[2021-01-05] MEDS: FLUoxetine 20 MG CAPSULE PO SCH (08:16)
[2021-01-05] MEDS: Multivit/Ca/Min/Fe/FA 1 TAB TABLET PO SCH (08:16)
[2021-01-05] MEDS ORDERED: *HR* Midazolam HCl 2 MG/2 ML VIAL ONE ×2 (11:03→13:12)
[2021-01-05] MEDS ORDERED: *HR* FentaNYL (PF) 100 MCG/2 ML VIAL ONE ×2 (11:03→13:12)
[2021-01-05] MEDS ORDERED: *HR* Propofol 200 MG/20 ML VIAL IVP ONE (11:10)
[2021-01-05] MEDS ORDERED: Lidocaine -MPF 2% 2 ML VIAL ONE (11:10)
[2021-01-05] MEDS ORDERED: *HR* FentaNYL (PF) 100 MCG/2 ML VIAL IVP PRN (12:07)
[2021-01-05] MEDS: CeFAZolin 2 GM/120 ML BAG IVPB SCH (23:29)
[2021-01-06] MEDS: Morphine Sulfate 2 MG/ML SYRINGE IVP PRN (00:06)
[2021-01-06 04:46] LABS: Basophils % 0.3 %; Hemoglobin 9.1 g/dL (11.5-15.4); Immature Granulocytes % 0.9 % (0-4); Lymphocytes # 0.7 K/mcL (0.6-4.6); Lymphocytes % 7.3 %; Mean Corpuscular HGB Conc 32.5 g/dL (31.6-35.5); Mean Corpuscular Hemoglobin 30.1 pg (28.0-33.3); Mean Corpuscular Volume 92.7 fL (83.0-100.0); Mean Platelet Volume 10.2 fL (9.4-12.4); Monocytes # 0.8 K/mcL (0.0-1.3); Monocytes % 8.4 %; Neutrophils # 8.3 K/mcL (1.6-8.9); Platelet Count 226 K/mcL (140-400); Red Blood Count 3.02 M/mcL (3.82-4.97); Red Cell Distribution Width 14.7 % (11.5-14.5); Segmented Neutrophils % 83.1 %; White Blood Count 9.9 K/mcL (4.3-11.1)
[2021-01-06 05:00] LABS: BUN/Creatinine Ratio 23 (6-26); Blood Urea Nitrogen 16 mg/dL (8-23); Calcium 7.7 mg/dL (8.6-10.3); Carbon Dioxide 19 mEq/L (23-29); Chloride 104 mEq/L (98-107); Glucose 117 mg/dL (70-105); Osmolality,Calculated 288 (280-300); Potassium 4.4 mEq/L (3.5-5.1); Sodium 138 mEq/L (136-145); eGFR For African Americans > 60 (> 60); eGFR For Non-African Americans > 60 (> 60)
[2021-01-06] MEDS: Insulin LISPRO 300 UNITS/3 ML VIAL SUBQ SCH ×3 (07:13→16:47)
[2021-01-06] MEDS: FLUoxetine 20 MG CAPSULE PO SCH (07:20)
[2021-01-06] MEDS: Multivit/Ca/Min/Fe/FA 1 TAB TABLET PO SCH (07:20)
[2021-01-06] MEDS: CeFAZolin 2 GM/120 ML BAG IVPB SCH (08:24)
[2021-01-06] MEDS: *HR* HYDROcodone/Acet 5/325 mg TABLET PO PRN ×2 (09:06→16:37)
[2021-01-07] MEDS: *HR* HYDROcodone/Acet 5/325 mg TABLET PO PRN (00:55)
[2021-01-07 02:39] LABS: Hematocrit 23.9 % (35.3-44.9); Hemoglobin 7.8 g/dL (11.5-15.4)
[2021-01-07 03:23] LABS: Alanine Aminotransferase 4 Units/L (7-52); Albumin 3.1 g/dL (3.5-5.7); Albumin/Globulin Ratio 1.2 (1.1-2.2); Alkaline Phosphatase 49 Units/L (34-104); Aspartate Amino Transferase 18 Units/L (13-39); BUN/Creatinine Ratio 34 (6-26); Bilirubin,Total 0.5 mg/dL (0.3-1.0); Blood Urea Nitrogen 25 mg/dL (8-23); Calcium 7.9 mg/dL (8.6-10.3); Carbon Dioxide 26 mEq/L (23-29); Chloride 104 mEq/L (98-107); Globulin 2.5 g/dL (2.4-3.5); Glucose 103 mg/dL (70-105); Osmolality,Calculated 291 (280-300); Potassium 3.8 mEq/L (3.5-5.1); Sodium 138 mEq/L (136-145); Total Protein 5.6 g/dL (6.4-8.9); eGFR For African Americans > 60 (> 60); eGFR For Non-African Americans > 60 (> 60)
[2021-01-07] MEDS: Insulin LISPRO 300 UNITS/3 ML VIAL SUBQ SCH ×3 (07:15→16:23)
[2021-01-07] MEDS: FLUoxetine 20 MG CAPSULE PO SCH (07:42)
[2021-01-07] MEDS: Multivit/Ca/Min/Fe/FA 1 TAB TABLET PO SCH (07:42)
[2021-01-07 14:43] LABS: Hematocrit 25.4 % (35.3-44.9); Hemoglobin 8.2 g/dL (11.5-15.4)
[2021-01-07] MEDS: polyethylene glycoL 3350 17 GM POWD.PACK PO SCH (16:15)
[2021-01-07 17:28] LABS: Influenza A PCR Negative (Negative); Influenza B PCR Negative (Negative); Resp. Syncytial Virus PCR Negative (Negative)
[2021-01-07 17:58] LABS: SARS-CoV-2 by PCR (In House) Negative (Negative)
[2021-01-08 01:24] LABS: Hematocrit 23.8 % (35.3-44.9); Hemoglobin 7.8 g/dL (11.5-15.4); Mean Corpuscular HGB Conc 32.8 g/dL (31.6-35.5); Mean Corpuscular Hemoglobin 29.4 pg (28.0-33.3); Mean Corpuscular Volume 89.8 fL (83.0-100.0); Mean Platelet Volume 9.6 fL (9.4-12.4); Platelet Count 262 K/mcL (140-400); Red Blood Count 2.65 M/mcL (3.82-4.97); Red Cell Distribution Width 15.1 % (11.5-14.5); White Blood Count 8.3 K/mcL (4.3-11.1)
[2021-01-08] MEDS: *HR* HYDROcodone/Acet 5/325 mg TABLET PO PRN (04:00)
[2021-01-08] MEDS: Insulin LISPRO 300 UNITS/3 ML VIAL SUBQ SCH ×3 (07:37→16:41)
[2021-01-08] MEDS: Multivit/Ca/Min/Fe/FA 1 TAB TABLET PO SCH (10:32)
[2021-01-08] MEDS: Aspirin 81 MG TAB.CHEW PO SCH (10:32)
[2021-01-08] MEDS: polyethylene glycoL 3350 17 GM POWD.PACK PO SCH (10:32)
[2021-01-08] MEDS: FLUoxetine 20 MG CAPSULE PO SCH (10:32)
[2021-01-08] MEDS ORDERED: 0.9 % Sodium Chloride 500 ML IVC ONE (18:16)
[2021-01-08 21:14] LABS: Hematocrit 23.8 % (35.3-44.9); Hemoglobin 7.7 g/dL (11.5-15.4)
[2021-01-09] MEDS: Acetaminophen 325 MG TABLET PO PRN ×2 (01:02→10:00)
[2021-01-09 02:33] LABS: Hemoglobin 7.4 g/dL (11.5-15.4); Mean Corpuscular HGB Conc 32.2 g/dL (31.6-35.5); Mean Corpuscular Hemoglobin 29.5 pg (28.0-33.3); Mean Corpuscular Volume 91.6 fL (83.0-100.0); Mean Platelet Volume 9.8 fL (9.4-12.4); Platelet Count 278 K/mcL (140-400); Red Blood Count 2.51 M/mcL (3.82-4.97); Red Cell Distribution Width 15.1 % (11.5-14.5); White Blood Count 7.7 K/mcL (4.3-11.1)
[2021-01-09] MEDS: polyethylene glycoL 3350 17 GM POWD.PACK PO SCH (09:57)
[2021-01-09] MEDS: Aspirin 81 MG TAB.CHEW PO SCH (10:00)
[2021-01-09] MEDS: FLUoxetine 20 MG CAPSULE PO SCH (10:02)
[2021-01-09] MEDS: Multivit/Ca/Min/Fe/FA 1 TAB TABLET PO SCH (10:04)
[2021-01-09] MEDS: Insulin LISPRO 300 UNITS/3 ML VIAL SUBQ SCH ×3 (10:08→16:48)
[2021-01-09] MEDS ORDERED: 0.9 % Sodium Chloride 250 ML ONE (13:56)
[2021-01-09] MEDS ORDERED: Isovue-370 500 ML BOTTLE IVP ONE (14:19)
[2021-01-09] MEDS ORDERED: Perflutren Lipid Microsphere 1.3 ML in 0.9 % Sodium Chloride 8.7 ML IVP PRN (14:20)
[2021-01-09 18:36] LABS: Adenovirus F 40/41 PCR Not detected (Not detect); Astrovirus PCR Not detected (Not detect); C.difficile Toxin A/B Gene PCR Not detected (Not detect); Campylobacter by PCR Not detected (Not detect); Cryptosporidium by PCR Not detected (Not detect); Cyclospora cayetanensis PCR Not detected (Not detect); E. coli O157 by PCR Not detected (Not detect); Entamoeba histolytica PCR Not detected (Not detect); Enteroaggregative E.coli(EAEC) Not detected (Not detect); Enteropathogenic E.coli(EPEC) DETECTED (Not detect); Enterotoxigenic E.coli (ETEC) Not detected (Not detect); Giardia lamblia PCR Not detected (Not detect); Norovirus GI/GII PCR Not detected (Not detect); Plesiomonas shigelloides PCR Not detected (Not detect); Rotavirus A PCR Not detected (Not detect); Salmonella PCR Not detected (Not detect); Sapovirus PCR Not detected (Not detect); Shig/EnteroinvasiveE coli EIEC Not detected (Not detect); Shigalike tox-prod E coli STEC Not detected (Not detect); Vibrio PCR Not detected (Not detect); Vibrio cholerae PCR Not detected (Not detect); Yersinia enterocolitica PCR Not detected (Not detect)
[2021-01-10] MEDS: Morphine Sulfate 2 MG/ML SYRINGE IVP PRN ×2 (00:43→19:38)
[2021-01-10 01:02] LABS: Hematocrit 31.6 % (35.3-44.9)
[2021-01-10 01:09] LABS: Hemoglobin 10.7 g/dL (11.5-15.4)
[2021-01-10] MEDS: Insulin LISPRO 300 UNITS/3 ML VIAL SUBQ SCH ×3 (07:33→16:46)
[2021-01-10] MEDS: FLUoxetine 20 MG CAPSULE PO SCH (07:49)
[2021-01-10] MEDS: Aspirin 81 MG TAB.CHEW PO SCH (07:51)
[2021-01-10] MEDS: Multivit/Ca/Min/Fe/FA 1 TAB TABLET PO SCH (07:51)
[2021-01-10] MEDS: Acetaminophen 325 MG TABLET PO PRN (13:14)
[2021-01-11] MEDS: Insulin LISPRO 300 UNITS/3 ML VIAL SUBQ SCH ×3 (07:40→18:01)
[2021-01-11] MEDS: FLUoxetine 20 MG CAPSULE PO SCH (08:45)
[2021-01-11] MEDS: Aspirin 81 MG TAB.CHEW PO SCH (08:45)
[2021-01-11] MEDS: Multivit/Ca/Min/Fe/FA 1 TAB TABLET PO SCH (08:45)
[2021-01-11 10:45] VITALS: O2SAT 99
[2021-01-11 13:56] LABS: Influenza A PCR Negative (Negative); Influenza B PCR Negative (Negative); Resp. Syncytial Virus PCR Negative (Negative)
[2021-01-11 14:34] LABS: SARS-CoV-2 by PCR (In House) Negative (Negative)
[2021-01-11 19:09] VITALS: BP 128/80; PULSE 118; TEMP 98.6
== END 2021-01-11 19:31 | DRG 480 ==
LOC: EMEROOARM 11:56 → 3BNU 11:56 → SUATTDRO 17:58 → 3BNU 18:52
PROVIDERS: ADMIT Internal Medicine; ATTEND Registered Nurse